=== PATIENT | male | born 1980 | race Hispanic/Latino ===

== ENCOUNTER 2021-08-17 17:52 | Inpatient (IN) | payer SELFPAY ==
[~2021-08-17] VITALS: Ht 167.6 cm; Wt 107.1 kg
[2021-08-17] MEDS ORDERED: SODIUM CHLORIDE 0.9% 1000ML 1,000 ML ONE ×2 (18:37→20:24)
[2021-08-17] MEDS ORDERED: SODIUM CHLORIDE 0.9% 1000ML 1,000 ML IV ONE (18:45)
[2021-08-17] MEDS ORDERED: SODIUM CHLORIDE 0.9% 1000ML 1,000 ML IV SCH ×2 (19:00→23:00)
[2021-08-17] MEDS ORDERED: CEFEPIME 2 GM in SODIUM CHLORIDE 0.9% 100 ML IV ONE (19:00)
[2021-08-17 19:02] LABS: BASOPHILS # (AUTO) 0.1 (0.0-0.1); BASOPHILS % 0.7 % (0.0-1.0); HEMATOCRIT 42.6 % (38.2-49.6); HEMOGLOBIN 15.6 g/dL (14.0-18.0); LYMPHOCYTES # (AUTO) 0.5 (1.0-3.2); MEAN CORPUSCULAR HEMOGLOBIN 32.6 pg (28-32); MEAN CORPUSCULAR HGB CONC 36.6 g/dL (31-35); MEAN CORPUSCULAR VOLUME 88.9 fL (81-99); MONOCYTES # (AUTO) 0.5 (0.2-0.8); NEUTROPHILS # (AUTO) 8.1 (2.1-6.9); NEUTROPHILS % 88.6 % (38.7-80.0); RED BLOOD COUNT 4.79 x10e6/uL (4.3-5.7); RED CELL DISTRIBUTION WIDTH 12.2 % (11.7-14.4)
[2021-08-17 19:06] LABS: PLATELET COUNT 30 x10e3/uL (140-360)
[2021-08-17 19:13] LABS: ANION GAP 15.8 mmol/L (8-16); CALCIUM 7.9 mg/dL (8.4-10.2); CREATININE, SERUM 1.54 mg/dL (0.72-1.25); POTASSIUM 3.8 mmol/L (3.5-5.1)
[2021-08-17 19:16] LABS: ALBUMIN 2.4 g/dL (3.5-5.0); BILIRUBIN,DIRECT 2.8 mg/dL (0.0-0.5)
[2021-08-17] MEDS ORDERED: IOPAMIDOL 370 MG/ML 100 ML INFUS..BTL INJ ONE (19:18)
[2021-08-17 19:38] LABS: INR 1.53; PROTHROMBIN TIME 19.7 seconds (11.9-14.5)
[2021-08-17] MEDS ORDERED: CEFEPIME HCL 1 GM VIAL ONE (20:24)
[2021-08-18] VITALS (72 sets, daily range): BP systolic 70–110; BP diastolic 39–84
[2021-08-18] MEDS: SODIUM CHLORIDE 0.9% 1000ML 1,000 ML IV SCH ×2 (01:04→08:20)
[2021-08-18 05:29] LABS: BILIRUBIN,DIRECT 2.8 mg/dL (0.0-0.5); CALCIUM 7.1 mg/dL (8.4-10.2); CREATININE, SERUM 1.26 mg/dL (0.72-1.25)
[2021-08-18 05:43] LABS: BASOPHILS # (AUTO) 0.1 (0.0-0.1); BASOPHILS % 0.7 % (0.0-1.0); HEMATOCRIT 40.7 % (38.2-49.6); HEMOGLOBIN 14.9 g/dL (14.0-18.0); LYMPHOCYTES # (AUTO) 0.7 (1.0-3.2); LYMPHOCYTES % 7.5 % (18.0-39.1); MEAN CORPUSCULAR HGB CONC 36.6 g/dL (31-35); MONOCYTES # (AUTO) 0.3 (0.2-0.8); MONOCYTES % 3.9 % (4.4-11.3); NEUTROPHILS # (AUTO) 7.7 (2.1-6.9); NEUTROPHILS % 87.2 % (38.7-80.0); RED BLOOD COUNT 4.52 x10e6/uL (4.3-5.7); RED CELL DISTRIBUTION WIDTH 12.4 % (11.7-14.4)
[2021-08-18 06:01] LABS: PLATELET COUNT 26 x10e3/uL (140-360)
[2021-08-18 07:06] LABS: BAND NEUTROPHILS % (MANUAL) 8 %; LYMPHOCYTES % (MANUAL) 1 % (19-48); MONOCYTES % (MANUAL) 2 % (3.4-9.0); NEUTROPHILS % (MANUAL) 89 % (40-74)
[2021-08-18 07:07] LABS: PLATELET ESTIMATE MARKEDLY DECREASED; PLATELET MORPHOLOGY COMMENT NORMAL; RBC MORPHOLOGY COMMENT NORMAL
[2021-08-18] MEDS ORDERED: ACETAMINOPHEN 325 MG TAB PO PRN (07:45)
[2021-08-18] MEDS ORDERED: SODIUM CHLORIDE 0.9% 500ML 500 ML IV ONE (10:20)
[2021-08-18] MEDS ORDERED: IBUPROFEN 800MG/ 200ML 200 ML IV PRN (10:30)
[2021-08-18] MEDS ORDERED: ALBUMIN 25% 25GM 100ML 0.25 GM/ML BTL IV SCH (10:30)
[2021-08-18] MEDS: OCTREOTIDE ACETATE 500 MCG in SODIUM CHLORIDE 0.9% 250ML 250 ML IV SCH ×2 (10:48→20:39)
[2021-08-18] MEDS: ALBUMIN 25% 25GM 100ML 100 ML IV SCH ×3 (10:50→23:01)
[2021-08-18] MEDS ORDERED: SODIUM CHLORIDE 0.9% 250ML 250 ML ONE (17:47)
[2021-08-19] VITALS (27 sets, daily range): BP systolic 75–110; BP diastolic 51–78
[2021-08-19] MEDS ORDERED: PIPERACILLIN/TAZOBACTAM 3.375 GM VIAL ONE (00:17)
[2021-08-19 04:51] LABS: BASOPHILS # (AUTO) 0.1 (0.0-0.1); BASOPHILS % 1.1 % (0.0-1.0); EOSINOPHILS % 0.1 % (0.0-6.0); HEMATOCRIT 37.5 % (38.2-49.6); HEMOGLOBIN 13.4 g/dL (14.0-18.0); LYMPHOCYTES # (AUTO) 0.7 (1.0-3.2); LYMPHOCYTES % 8.3 % (18.0-39.1); MEAN CORPUSCULAR HEMOGLOBIN 32.4 pg (28-32); MEAN CORPUSCULAR HGB CONC 35.7 g/dL (31-35); MEAN CORPUSCULAR VOLUME 90.8 fL (81-99); MONOCYTES # (AUTO) 0.4 (0.2-0.8); MONOCYTES % 4.2 % (4.4-11.3); NEUTROPHILS # (AUTO) 7.3 (2.1-6.9); NEUTROPHILS % 85.1 % (38.7-80.0); RED BLOOD COUNT 4.13 x10e6/uL (4.3-5.7); RED CELL DISTRIBUTION WIDTH 13.2 % (11.7-14.4)
[2021-08-19 04:55] LABS: PLATELET COUNT 14 x10e3/uL (140-360)
[2021-08-19 05:10] LABS: ALBUMIN 2.5 g/dL (3.5-5.0); ALBUMIN/GLOBULIN RATIO 0.9 (0.8-2.0); ANION GAP 14.5 mmol/L (8-16); CALCIUM 7.1 mg/dL (8.4-10.2); CREATININE, SERUM 1.87 mg/dL (0.72-1.25); POTASSIUM 3.5 mmol/L (3.5-5.1)
[2021-08-19 06:41] LABS: BAND NEUTROPHILS % (MANUAL) 3 %; LYMPHOCYTES % (MANUAL) 2 % (19-48); MONOCYTES % (MANUAL) 3 % (3.4-9.0); NEUTROPHILS % (MANUAL) 92 % (40-74); PLATELET ESTIMATE MARKEDLY DECREASED; PLATELET MORPHOLOGY COMMENT NORMAL; RBC MORPHOLOGY COMMENT NORMAL
[2021-08-19] MEDS: OCTREOTIDE ACETATE 500 MCG in SODIUM CHLORIDE 0.9% 250ML 250 ML IV SCH ×2 (07:28→17:43)
[2021-08-19] MEDS ORDERED: SODIUM CHLORIDE 0.9% 250ML 0 ML ONE (07:36)
[2021-08-19] MEDS ORDERED: ARTIFICIAL TEARS (OPTH) 15 ML BTL OU PRN (10:30)
[2021-08-19] MEDS: MIDODRINE HCL 5 MG TABLET PO SCH ×2 (11:51→16:11)
[2021-08-19] MEDS: ALBUMIN 25% 25GM 100ML 100 ML IV SCH ×2 (11:51→20:48)
[2021-08-19 12:01] LABS: CREATININE,URINE RANDOM 178.05 mg/dL (63-166); TOTAL PROTEIN, URINE 60.6 mg/dL (1-14)
[2021-08-19] MEDS ORDERED: SODIUM CHLORIDE 0.9% 250ML 250 ML ONE (12:36)
[2021-08-19 12:42] LABS: SODIUM,URINE < 20 mmol/L
[2021-08-19 12:47] LABS: EOSINOPHIL SMEAR,URINE NONE SEEN (NONE SEEN)
[2021-08-19] MEDS: ONDANSETRON HCL INJ 2MG/ML 2ML 2 MG/ML VIAL IV PRN (14:24)
[2021-08-19] MEDS: HYDROMORPHONE 1MG/1ML INJ IV PRN ×2 (14:24→21:48)
[2021-08-19] MEDS ORDERED: ALBUMIN 25% 25GM 100ML 0.25 GM/ML BTL IV SCH (17:00)
[2021-08-20] VITALS (24 sets, daily range): BP systolic 81–116; BP diastolic 49–73
[2021-08-20] MEDS: OCTREOTIDE ACETATE 500 MCG in SODIUM CHLORIDE 0.9% 250ML 250 ML IV SCH ×2 (03:34→14:22)
[2021-08-20 05:10] LABS: BASOPHILS # (AUTO) 0.1 (0.0-0.1); BASOPHILS % 0.8 % (0.0-1.0); EOSINOPHILS % 0.4 % (0.0-6.0); HEMATOCRIT 36.5 % (38.2-49.6); HEMOGLOBIN 13.3 g/dL (14.0-18.0); LYMPHOCYTES # (AUTO) 2.2 (1.0-3.2); LYMPHOCYTES % 22.1 % (18.0-39.1); MEAN CORPUSCULAR HEMOGLOBIN 32.8 pg (28-32); MEAN CORPUSCULAR HGB CONC 36.4 g/dL (31-35); MEAN CORPUSCULAR VOLUME 90.1 fL (81-99); MONOCYTES # (AUTO) 0.6 (0.2-0.8); NEUTROPHILS # (AUTO) 6.9 (2.1-6.9); NEUTROPHILS % 69.4 % (38.7-80.0); RED BLOOD COUNT 4.05 x10e6/uL (4.3-5.7); RED CELL DISTRIBUTION WIDTH 13.4 % (11.7-14.4)
[2021-08-20 05:24] LABS: PLATELET COUNT 18 x10e3/uL (140-360)
[2021-08-20 05:32] LABS: ALBUMIN 2.4 g/dL (3.5-5.0); ALBUMIN/GLOBULIN RATIO 0.9 (0.8-2.0); ANION GAP 14.8 mmol/L (8-16); CALCIUM 7.1 mg/dL (8.4-10.2); CREATININE, SERUM 1.77 mg/dL (0.72-1.25); POTASSIUM 3.8 mmol/L (3.5-5.1)
[2021-08-20 07:21] LABS: LYMPHOCYTES % (MANUAL) 4 % (19-48); MONOCYTES % (MANUAL) 3 % (3.4-9.0); MYELOCYTES % (MANUAL) 2 % (0-0); NEUTROPHILS % (MANUAL) 88 % (40-74); PLATELET ESTIMATE MARKEDLY DECREASED
[2021-08-20 07:22] LABS: PLATELET MORPHOLOGY COMMENT NORMAL; RBC MORPHOLOGY COMMENT NORMAL
[2021-08-20] MEDS: MIDODRINE HCL 5 MG TABLET PO SCH ×3 (08:09→17:10)
[2021-08-20] MEDS: ALBUMIN 25% 25GM 100ML 100 ML IV SCH (08:09)
[2021-08-20] MEDS ORDERED: SODIUM CHLORIDE 0.9% 250ML 250 ML ONE (23:33)
[2021-08-21] VITALS (20 sets, daily range): BP systolic 89–120; BP diastolic 54–88
[2021-08-21] MEDS: OCTREOTIDE ACETATE 500 MCG in SODIUM CHLORIDE 0.9% 250ML 250 ML IV SCH ×3 (00:05→18:01)
[2021-08-21 05:22] LABS: BASOPHILS # (AUTO) 0.1 (0.0-0.1); BASOPHILS % 1.4 % (0.0-1.0); EOSINOPHILS # (AUTO) 0.1 (0.0-0.4); EOSINOPHILS % 0.8 % (0.0-6.0); HEMATOCRIT 35.9 % (38.2-49.6); HEMOGLOBIN 12.7 g/dL (14.0-18.0); LYMPHOCYTES # (AUTO) 3.2 (1.0-3.2); LYMPHOCYTES % 37.8 % (18.0-39.1); MEAN CORPUSCULAR HEMOGLOBIN 32.4 pg (28-32); MEAN CORPUSCULAR HGB CONC 35.4 g/dL (31-35); MEAN CORPUSCULAR VOLUME 91.6 fL (81-99); MONOCYTES # (AUTO) 0.5 (0.2-0.8); MONOCYTES % 6.3 % (4.4-11.3); NEUTROPHILS # (AUTO) 4.4 (2.1-6.9); RED BLOOD COUNT 3.92 x10e6/uL (4.3-5.7)
[2021-08-21 05:25] LABS: PLATELET COUNT 24 x10e3/uL (140-360)
[2021-08-21 05:46] LABS: ANION GAP 10.7 mmol/L (8-16); CALCIUM 7.4 mg/dL (8.4-10.2); CREATININE, SERUM 1.17 mg/dL (0.72-1.25); MAGNESIUM 2.2 MG/DL (1.3-2.1); POTASSIUM 3.7 mmol/L (3.5-5.1)
[2021-08-21] MEDS: MIDODRINE HCL 5 MG TABLET PO SCH ×3 (08:01→18:00)
[2021-08-21 09:01] LABS: BAND NEUTROPHILS % (MANUAL) 1 %; LYMPHOCYTES % (MANUAL) 16 % (19-48); MONOCYTES % (MANUAL) 5 % (3.4-9.0); NEUTROPHILS % (MANUAL) 78 % (40-74); PLATELET ESTIMATE MARKEDLY DECREASED; RBC MORPHOLOGY COMMENT NORMAL
[2021-08-21 09:02] LABS: PLATELET MORPHOLOGY COMMENT MANY GIANT
[2021-08-21] MEDS ORDERED: PIPERACILLIN/TAZOBACTAM 3.375 GM VIAL ONE (12:41)
[2021-08-21] MEDS ORDERED: SODIUM CHLORIDE 0.9% 250ML 250 ML ONE (12:42)
[2021-08-21] MEDS: MELATONIN 3 MG TAB PO PRN (23:21)
[2021-08-22] VITALS (7 sets, daily range): BP systolic 105–121; BP diastolic 65–89
[2021-08-22] MEDS: OCTREOTIDE ACETATE 500 MCG in SODIUM CHLORIDE 0.9% 250ML 250 ML IV SCH ×2 (04:34→14:16)
[2021-08-22 05:52] LABS: BASOPHILS % 0.5 % (0.0-1.0); EOSINOPHILS # (AUTO) 0.1 (0.0-0.4); EOSINOPHILS % 0.9 % (0.0-6.0); HEMATOCRIT 38.5 % (38.2-49.6); HEMOGLOBIN 12.7 g/dL (14.0-18.0); LYMPHOCYTES % 51.2 % (18.0-39.1); MEAN CORPUSCULAR HEMOGLOBIN 32.2 pg (28-32); MONOCYTES # (AUTO) 0.6 (0.2-0.8); MONOCYTES % 8.3 % (4.4-11.3); NEUTROPHILS % 38.3 % (38.7-80.0); RED BLOOD COUNT 3.95 x10e6/uL (4.3-5.7); RED CELL DISTRIBUTION WIDTH 14.6 % (11.7-14.4)
[2021-08-22 06:14] LABS: ALBUMIN 2.2 g/dL (3.5-5.0); ALBUMIN/GLOBULIN RATIO 0.6 (0.8-2.0); ANION GAP 12.9 mmol/L (8-16); CALCIUM 7.6 mg/dL (8.4-10.2); CREATININE, SERUM 0.96 mg/dL (0.72-1.25); POTASSIUM 3.9 mmol/L (3.5-5.1)
[2021-08-22 06:18] LABS: MEAN CORPUSCULAR VOLUME 97.5 fL (81-99)
[2021-08-22 06:19] LABS: PLATELET COUNT 39 x10e3/uL (140-360)
[2021-08-22 06:56] LABS: LYMPHOCYTES % (MANUAL) 29 % (19-48); MONOCYTES % (MANUAL) 3 % (3.4-9.0); MYELOCYTES % (MANUAL) 1 % (0-0); NEUTROPHILS % (MANUAL) 66 % (40-74); PLATELET MORPHOLOGY COMMENT FEW LARGE
[2021-08-22 06:57] LABS: PLATELET ESTIMATE MARKEDLY DECREASED; RBC MORPHOLOGY COMMENT NORMAL; SMUDGE CELLS FEW
[2021-08-22] MEDS: MIDODRINE HCL 5 MG TABLET PO SCH ×3 (09:38→16:42)
[2021-08-22] MEDS: MELATONIN 3 MG TAB PO PRN (21:13)
[2021-08-23] VITALS: BP 118/69
[2021-08-23 04:00] VITALS: BP 111/76
[2021-08-23] MEDS: OCTREOTIDE ACETATE 500 MCG in SODIUM CHLORIDE 0.9% 250ML 250 ML IV SCH ×2 (04:52→12:00)
[2021-08-23 08:44] VITALS: BP 113/71
[2021-08-23] MEDS: MIDODRINE HCL 5 MG TABLET PO SCH ×2 (08:59→12:00)
[2021-08-23 09:27] VITALS: BP 113/71
[2021-08-23 10:44] LABS: BASOPHILS # (AUTO) 0.1 (0.0-0.1); BASOPHILS % 0.8 % (0.0-1.0); EOSINOPHILS # (AUTO) 0.1 (0.0-0.4); EOSINOPHILS % 1.5 % (0.0-6.0); HEMATOCRIT 33.8 % (38.2-49.6); HEMOGLOBIN 11.9 g/dL (14.0-18.0); LYMPHOCYTES # (AUTO) 2.9 (1.0-3.2); MEAN CORPUSCULAR HEMOGLOBIN 32.2 pg (28-32); MEAN CORPUSCULAR HGB CONC 35.2 g/dL (31-35); MEAN CORPUSCULAR VOLUME 91.4 fL (81-99); MONOCYTES # (AUTO) 0.7 (0.2-0.8); MONOCYTES % 10.9 % (4.4-11.3); NEUTROPHILS # (AUTO) 2.3 (2.1-6.9); NEUTROPHILS % 38.3 % (38.7-80.0); PLATELET COUNT 54 x10e3/uL (140-360); RED CELL DISTRIBUTION WIDTH 14.4 % (11.7-14.4)
[2021-08-23 11:03] LABS: ANION GAP 8.1 mmol/L (8-16); CALCIUM 7.5 mg/dL (8.4-10.2); CREATININE, SERUM 0.76 mg/dL (0.72-1.25); POTASSIUM 4.1 mmol/L (3.5-5.1)
[2021-08-23 12:40] LABS: EOSINOPHILS % (MANUAL) 2 % (0-7); LYMPHOCYTES % (MANUAL) 48 % (19-48); MONOCYTES % (MANUAL) 10 % (3.4-9.0); NEUTROPHILS % (MANUAL) 40 % (40-74)
[2021-08-23 12:41] LABS: PLATELET ESTIMATE MODERATELY DECREASED; PLATELET MORPHOLOGY COMMENT NORMAL; RBC MORPHOLOGY COMMENT NORMAL
[2021-08-23] MEDS: ONDANSETRON HCL INJ 2MG/ML 2ML 2 MG/ML VIAL IV PRN (12:45)
[2021-08-23] MEDS: HYDROMORPHONE 1MG/1ML INJ IV PRN ×2 (12:45→13:17)
[2021-08-23 13:21] VITALS: BP 107/68
[2021-08-23 16:00] VITALS: BP 114/65
[2021-08-23] MEDS ORDERED: ONDANSETRON HCL 4 MG ORAL DISINTEGRATING TAB PO PRN (16:30)
[2021-08-24] MEDS ORDERED: PANTOPRAZOLE SOD 40 MG TABEC PO SCH (07:30)
== END 2021-08-23 17:04 | disposition home or self-care (01) | DRG 871 ==
LOC: FSED 18:00 → ERHOLD 21:47 → ICU 08-18 00:33 → MED/SURG2 08-21 17:24
PROC: 3E03329 Introduction of Other Anti-infective into Peripheral Vein, Percutaneous Approach (ICD-10-PCS; 2021-08-17)
PROC: 02HV33Z Insertion of Infusion Device into Superior Vena Cava, Percutaneous Approach (ICD-10-PCS; principal; 2021-08-18)
PROC: 30243L1 Transfusion of Nonautologous Fresh Plasma into Central Vein, Percutaneous Approach (ICD-10-PCS; 2021-08-18)
PROC: 30243R1 Transfusion of Nonautologous Platelets into Central Vein, Percutaneous Approach (ICD-10-PCS; 2021-08-18)
PROC: 30243K1 Transfusion of Nonautologous Frozen Plasma into Central Vein, Percutaneous Approach (ICD-10-PCS; 2021-08-18)
DX: A41.9 Sepsis, unspecified organism (principal); K76.7 Hepatorenal syndrome; J69.0 Pneumonitis due to inhalation of food and vomit; N17.0 Acute kidney failure with tubular necrosis; E87.2 Acidosis; E87.1 Hypo-osmolality and hyponatremia; K76.6 Portal hypertension; D68.4 Acquired coagulation factor deficiency; D69.6 Thrombocytopenia, unspecified; E80.6 Other disorders of bilirubin metabolism; K70.30 Alcoholic cirrhosis of liver without ascites; F10.21 Alcohol dependence, in remission; R65.20 Severe sepsis without septic shock; R16.1 Splenomegaly, not elsewhere classified; Z20.822 Contact with and (suspected) exposure to COVID-19; B19.20 Unspecified viral hepatitis C without hepatic coma; Z91.14 Patient's other noncompliance with medication regimen; Z28.310 Unvaccinated for COVID-19
CPT/HCPCS: 36415; 36569; 71045; 71046; 71250; 74177; 80048; 80053; 80076; 81003; 81015; 82140; 82553; 82570; 83605; 83735; 83930; 83935; 84156; 84300; 84484; 85025; 85610; 85730; 86900; 87040; 87086; 93005; 96374; 96376; 97139; 99251; 99284; J0692; J1170; J2353; J2405; J2543; J7030; J7050; P9017; P9034; P9047; Q9967; U0002